=== PATIENT | female | born 1960 | race Caucasian/White ===

== ENCOUNTER 2017-04-25 13:41 | Emergency (ER) | payer OTHER ==
[2017-04-25 14:04] VITALS: PULSE 68; RESP 18; TEMP 97
[2017-04-25] MEDS ORDERED: FLUCONAZOLE 150 MG TAB PO STA (15:08)
--- NOTE | 2017-04-25 15:15 | ED ---
Female Urogenital HPI - General Chief complaint: Urogenital Stated complaint: Female Time Seen by Provider: 04/25/17 14:39 Source: patient, RN notes reviewed Mode of arrival: ambulatory Limitations: no limitations - History of Present Illness Initial comments: Patient is a 57-year-old female presents to the emergency room for evaluation of vaginal itching. Patient states she's had the symptoms for the past few weeks. Patient denies currently being sexually active. Patient denies history of STDs. Patient states she hasn't been sexually active in over a year. Patient denies abnormal vaginal discharge or vaginal bleeding. Patient states she already been through menopause. Patient denies pain or burning during urination or trouble urinating. Patient denies any abdominal pain. Patient denies any lesions over her vagina. Patient states that from itching she started to bleed every time she wipes. Patient states she's been trying to keep the area clean daily. Patient denies being on any recent antibiotics. - Related Data Home Medications Medication Instructions Recorded Confirmed Unk Diabetic Med 1 tab PO DAILY 04/25/17 04/25/17 metFORMIN HCL [Metformin HCl] 1,000 mg PO BID 04/25/17 04/25/17 Previous Rx's Medication Instructions Recorded Fluconazole [Diflucan] 150 mg PO ONCE PRN #1 tab 04/25/17 Miconazole 2% Vaginal Cream 1 applicator VAGINAL HS 7 Days 04/25/17 [Monistat 7] Allergies Allergy/AdvReac Type Severity Reaction Status Date / Time Penicillins Allergy Rash/Hives Verified 04/25/17 15:03 Review of Systems ROS Statement: Those systems with pertinent positive or pertinent negative responses have been documented in the HPI. ROS Other: All systems not noted in ROS Statement are negative. Past Medical History Past Medical History: Diabetes Mellitus History of Any Multi-Drug Resistant Organisms: None Reported Past Surgical History: No Surgical Hx Reported Past Psychological History: No Psychological Hx Reported Smoking Status: Current every day smoker Past Alcohol Use History: Occasional Past Drug Use History: None Reported General Exam - General Exam Comments Initial Comments: sitting in exam room, no acute distress. Limitations: no limitations General appearance: alert, in no apparent distress Head exam: Present: atraumatic, normocephalic, normal inspection Eye exam: Present: normal appearance ENT exam: Present: normal exam Neck exam: Present: normal inspection Respiratory exam: Present: normal lung sounds bilaterally. Absent: respiratory distress Cardiovascular Exam: Present: regular rate, normal rhythm, normal heart sounds External exam: Present: erythema, swelling. Absent: lesions, lacerations Extremities exam: Present: normal inspection Back exam: Present: normal inspection Neurological exam: Present: alert, oriented X3, CN II-XII intact, normal gait Psychiatric exam: Present: normal affect, normal mood Skin exam: Present: warm, dry, intact, normal color. Absent: rash Course Vital Signs 04/25/17 04/25/17 14:01 15:45 Temperature 97.0 F L Pulse Rate 68 68 Respiratory 18 18 Rate Blood Pressure 140/77 139/82 O2 Sat by Pulse 97 98 Oximetry Medical Decision Making - Medical Decision Making patient is a 57-year-old female presents emergency room for evaluation of vaginal itching. Patient's physical exam consistent with a vaginal yeast infection. Patient be placed on miconazole cream and Diflucan. Advised patient to follow-up with primary care provider or [facility]WORK [facility]. Patient states she understands everything that was discussed with her. Return parameters discussed. Case discussed with Dr. Boo. - Lab Data Lab Results 04/25/17 Range/Units 15:12 Urine Color Yellow Urine Appearance Clear (Clear) Urine pH 5.5 (5.0-8.0) Ur Specific [place] 1.032 (1.001-1.035) Urine Protein Trace H (Negative) Urine Glucose (UA) 4+ H (Negative) Urine Ketones Negative (Negative) Urine Blood Small H (Negative) Urine Nitrite Negative (Negative) Urine Bilirubin Negative (Negative) Urine Urobilinogen <2.0 (<2.0) mg/dL Ur Leukocyte Esterase Negative (Negative) Urine RBC 5 (0-5) /hpf Urine WBC 2 (0-5) /hpf Ur Squamous Epith Cells 2 (0-4) /hpf Urine Bacteria Rare H (None) /hpf Disposition Clinical Impression: Candidal vulvovaginitis Disposition: HOME SELF-CARE Condition: Good Instructions: Vulvovaginal Candidiasis (ED) Additional Instructions: Apply cream as directed. Take Diflucan in 3 days if symptoms are not improving. Please follow up with primary care provider or NETWORK SUPPORT in 1-2 days. If any new symptom arises or symptoms worsen, return to ER as soon as possible. Prescriptions: Fluconazole [Diflucan] 150 mg PO ONCE PRN #1 tab PRN Reason: Itching Miconazole 2% Vaginal Cream [Monistat 7] 1 applicator VAGINAL HS 7 Days Referrals: Lars Rai MD [Primary Care Provider] - 1-2 days Time of Disposition: 15:38
[2017-04-25 15:23] LABS: Appearance,Urine Clear (Clear); Bacteria,Urine Rare /hpf; Bilirubin,Urine Negative (Negative); Glucose,Urine (UA) 4+ (Negative); Ketones,Urine Negative (Negative); Leukocyte Esterase,Urine Negative (Negative); Nitrite,Urine Negative (Negative); PH, Urine 5.5 (5.0-8.0); Particle Count 3078; Protein,Urine Trace (Negative); RBC,Urine 5 /hpf (0-5); Specific Gravity,Urine 1.032 (1.001-1.035); Squamous Epithelial Cell,Urine 2 /hpf (0-4); UA Billing (MACRO vs. MICRO) MICRO; Urobilinogen,Urine <2.0 mg/dL (<2.0); WBC,Urine 2 /hpf (0-5)
[2017-04-25 15:46] VITALS: BP 139/82
== END 2017-04-25 15:46 | disposition home or self-care (01) ==
LOC: EC 13:41
DX: B37.3 Candidiasis of vulva and vagina (principal); E11.9 Type 2 diabetes mellitus without complications; F17.200 Nicotine dependence, unspecified, uncomplicated; Z79.84 Long term (current) use of oral hypoglycemic drugs; Z88.0 Allergy status to penicillin
CPT/HCPCS: 81001; 99283